=== PATIENT | female | born 1970 | race Caucasian/White ===

== ENCOUNTER 2017-10-12 10:33 | Emergency (ER) | payer OTHER ==
[2017-10-12 10:45] VITALS: BP 175/103; BMI 41.9
--- NOTE | 2017-10-12 12:04 | DR.GENAD ---
HPI - PCP Primary Care Physician: DEANA GONZALEZ - HPI Comment HPI Comment: HISTORY BELOW. - Complaint/Symptoms Chief Complaint Doctors Comments: LEFT SMALL TOE IS TURNING BLUE. HAPPEN ONCE BEFORE. DR JUARES VASCULAR SURGEON TREATED HER. HAVE PENDING APPOINTMENT BUT PAIN IS UNBEARABLE CURRENTLY. NO TRAUMA. Chief Complaint:: PT C/O HAVING BLUE TOES SYNDROME TO HER LEFT FOOT PT C/O PAIN THAT SHE CANNOT BEAR AND THAT HE LOOKED AT IT AND HE DID NOT TREAT IT,,, PT STATES " I LOOKED IT UP AND I DON'T WANT TO LOOSE MY TOE" ,,BR Self Treatment fo Chief Complaint: PT C/O WORSENING OVER THE PAST 3 DAYS,, PT C/ O ? FEVER AND GETTING HOT AND COLD . - Nurses notes reviewed Nurses Notes Review: Yes - Source History Provided: Patient - Mode of Arrival Mode of Arrival: Ambulatory - Timing Onset of Chief Complaint: 09/11/18 Came on: Gradually - Duration Duration: Constant Duration: Weeks - Severity Severity: Moderate PMH - PMH Past Medical History: No Past Surgical History: Yes Surgical History: Cholecystectomy - Family History History of Family Medical Conditions: No - Social History Does patient currently use any type of tobacco product: Yes Have you used tobacco products in the last 12 months: Yes Type of Tobacco Use: Cigarettes Does any household member use tobacco: No Alcohol Use: None Do you use any recreational Drugs:: No Lives With: Family Lives Where: Home - infectious screening In the last 2 months have you had wt loss of >10#?: NO Have you had fever, night sweats or hemotysis?: No Have you traveled outside the country in the last 6 months?: No Isolation: Standard ROS - Review of Systems Constitutional: No Symptoms Reported. negative: Chills, Fever, Weakness, Fatigue Eyes: No Symptoms Reported. negative: Eye Pain, Discharge ENTM: No Symptoms Reported Respiratoy: No Symptoms Reported Cardiovascular: No Symptoms Reported Gastrointestinal/Abdominal: No Symptoms Reported Genitourinary: No Symptoms Reported Neurological: No Symptoms Reported Musculoskeletal: Muscle Pain Integumentary: Change in Color, Other (TOLD SHE HAD BLUE TOE SYNDROME IN THE PAST.) Hematologic/Lymphatic: Easy Bleeding, Easy Bruising, Other (LT SMALL TOE SLIGHTLY SWOLLEN AND BLUE. DORSALIS PEDIS AND POSTERIOR TIBIA PULSES ARE INTACT. ) Endocrine: No Symptoms Reported All Other Systems: Reviewed and Negative PE - Vital Signs Vitals: Temperature 98.0 F Pulse Rate 105 Respiratory Rate 20 Blood Pressure 175/103 O2 Sat by Pulse Oximetry 95 - General Limitations: No Limitations General Appearance: Alert - Head Head Exam: Normal Inspection - Eyes Eye exam: Normal Appearance - ENT ENT Exam: Normal External Ear Exam External Ear Exam: Normal External Inspection TM/Canal Exam: Bilateral Normal Nose Exam: Normal Nose Exam Mouth Exam: Normal Inspection Throat Exam: Normal Inspection - Neck Neck Exam: Trachea Midline - Chest Chest Inspection: Symmetric Chest Wall Rise - Respiratory Respiratory Exam: Bilateral Clear to Auscultation - Cardiovascular Cardiovascular Exam: Regular Rate, Normal Rhythm, Normal Heart Sounds, Other ( PULSES INTACT) - Abdominal Exam Abdominal Exam: Normal Bowel Sounds, Soft. negative: Tenderness - Extremities Extremities Exam: Tenderness (LEFT 5TH TOE SLIGHTLY SWOLLEN AND BLUE.) - Back Back Exam: Normal Inspection - Neurologic Neurological Exam: Alert, Oriented X3 MDM - Additional Information Additional Information Obtained From: Family - Differential Diagnosis Differential Diagnosis: PAIN AND DISCORATION OF 5TH LT TOE. Course - Treatment Treatment: SEE ORDERS - Consultation Consultation Comments: DISCUSS PATIENT WITHDR. JUARES. PATIENT TO HAVE SOMETHING FOR PAIN AND SEE HIM THIS TUESDAY IN HIS [facility] OFFICE. - Education/Counseling Education/Counseling: Patient, Family, Education Educated On: Diagnosis, Needs for Follow Up ROR - XRAY XRAY Interpreted by: Radiologist XRAY Findings: REPORT DISCUSS WITH PATIENT AND FAMILY. - Diagnosis Discharge Problem: Pain in toe of left foot, Ischemia of toe - Discharge Plan Disposition: 01 HOME, SELF-CARE Condition: Stable Prescriptions: Tramadol HCl 50 mg PO Q8H #15 tablet - Follow ups/Referrals Follow ups/Referrals: LESA LEBLANC [Primary Care Provider] - 3 days - Instructions Instructions: Rayna[facility] Additional Instructions: RETURN TO ED IF WORSE. SEE DR. JUARES VASCULAR SURGEON THIS TUESDAY. CALL [phone] TO CONFIRM APPOINTMENT. You may be having ischemia in your left 5th digit.
--- NOTE | 2017-10-12 12:31 | RAD ---
HISTORY: Toes blue and swolen, denies injury Study: Three views left foot Comparison: None Findings: Normal alignment. No acute fracture or dislocation. The soft tissues are unremarkable. There is plan tar calcaneal spurring. IMPRESSION: 1. No acute osseous abnormality. Reported By:
== END 2017-10-12 13:27 | disposition home or self-care (01) ==
LOC: ER 11:23
DX: I99.8 Other disorder of circulatory system (principal); M25.572 Pain in left ankle and joints of left foot
CPT/HCPCS: 73630; 99282; 99285